=== PATIENT | female | born 2000 | race Hispanic/Latino ===

== ENCOUNTER 2022-12-06 00:44 | Inpatient (IN) | payer MEDICAID, OTHER ==
[2022-12-06] MEDS ORDERED: Carboprost 250 MCG/ML AMP IM PRN (01:33)
[2022-12-06] MEDS ORDERED: Tranexamic Acid 1,000 MG/10 ML VIAL IVP PRN (01:33)
[2022-12-06] MEDS ORDERED: Misoprostol 200 MCG TAB PR PRN (01:33)
[2022-12-06] MEDS ORDERED: Diphenoxylate HCl/Atropine Tablet PO PRN (01:33)
[2022-12-06] MEDS ORDERED: Ondansetron PF 4 MG/2 ML Vial IVP PRN ×3 (01:33→06:29)
[2022-12-06] MEDS ORDERED: Promethazine HCl 25 MG/ML VIAL IM PRN ×3 (01:33→06:29)
[2022-12-06] MEDS ORDERED: Methylergonovine 0.2 MG/ML VIAL IM PRN (01:33)
[2022-12-06] MEDS ORDERED: hydrALAZINE 20 MG/ML VIAL SLOW IVP PRN ×2 (01:33→06:29)
[2022-12-06] MEDS ORDERED: Lidocaine 1% (PF) 30 ML VIAL SC PRN (01:33)
[2022-12-06] MEDS ORDERED: Docusate 100 MG CAP PO PRN (01:33)
[2022-12-06] MEDS ORDERED: fentaNYL 50 mcg/mL 1 mL Vial SLOW IVP PRN (01:33)
[2022-12-06] MEDS ORDERED: Acetaminophen 500 MG TAB PO PRN (01:33)
[2022-12-06 01:41] VITALS: BMI 32.2
[2022-12-06] MEDS ORDERED: Lactated Ringer's 1,000 ML IV SCH (01:45)
[2022-12-06] MEDS ORDERED: Oxytocin 30 units/NS 500 ML 500 ML IV SCH (01:45)
[2022-12-06] MEDS ORDERED: Penicillin G Potassium 5 MILL.UNITS in Sodium Chloride 0.9% 100 ML IVPB SCH (01:45)
[2022-12-06] MEDS ORDERED: fentaNYL/Ropivacaine Epidural 100 ML ONE (02:17)
[2022-12-06] MEDS ORDERED: Ampicillin 2 GM VIAL ONE (02:36)
[2022-12-06 02:54] LABS: Hematocrit 33.3 % (34.9-44.5); Hemoglobin 11.6 g/dL (12.0-15.5); Mean Corpuscular HGB CONC 34.8 g/dL (32.0-36.0); Mean Corpuscular Hemoglobin 30.4 pg (27.0-33.0); Mean Corpuscular Volume 87.2 fl (81.6-98.3); Mean Platelet Volume 10.7 fl (7.4-10.4); Platelet Count 189 10x3/uL (150-450); RBC Distribution Width 13.4 % (11.5-14.5); Red Blood Cell (RBC) Count 3.82 10x6/uL (3.90-5.03); White Blood Cell (WBC) Count 8.9 10x3/uL (3.5-10.5)
[2022-12-06] MEDS ORDERED: Ampicillin 2 GM in Sodium Chloride 0.9% 100 ML IVPB SCH (03:00)
[2022-12-06 03:30] LABS: Syphilis Antibody Nonreactive (Nonreactive); Syphilis Antibody Index 0.03 S/CO (<1.00 Non-Reactive)
[2022-12-06 03:32] LABS: HBSAg Index 0.15 S/CO (0-0.99); Hep B Surf Ag - L&D Non-Reactive S/CO (NonReactive)
[2022-12-06] MEDS ORDERED: ePHEDrine Sulfate 50 MG/10 ML VIAL SLOW IVP PRN (03:35)
[2022-12-06] MEDS ORDERED: Lactated Ringer's 500 ML IV PRN (03:35)
[2022-12-06] MEDS ORDERED: diphenhydrAMINE 50 MG/ML VIAL IVP PRN (03:35)
[2022-12-06] MEDS ORDERED: Acetaminophen 325 MG TAB PO PRN (03:35)
[2022-12-06] MEDS ORDERED: Moisturizing Cream (Eucerin) 113 GM JAR TOP PRN (03:35)
[2022-12-06] MEDS ORDERED: Naloxone HCl 0.4 mg/ml Vial IVP PRN ×2 (03:35)
[2022-12-06] MEDS ORDERED: fentaNYL 2 mcg/Ropivacaine 0.2% Epidural 100 ML CADD EPIDURAL SCH (03:45)
[2022-12-06] MEDS ORDERED: Communication Order-Pharmacy FS SCH (03:45)
[2022-12-06] MEDS ORDERED: Penicillin G 2.5 MILL.units 2.5 MILL.UNITS in Premix 1 BAG IVPB SCH (05:00)
[2022-12-06] MEDS ORDERED: Milk Of Magnesia 30 ML UDCUP PO PRN (06:29)
[2022-12-06] MEDS ORDERED: Lanolin Ointment 7 GM TUBE TOP PRN (06:29)
[2022-12-06] MEDS ORDERED: diphenhydrAMINE 25 MG CAP PO PRN (06:29)
[2022-12-06] MEDS ORDERED: HYDROcodone/Acetaminophen 5/325 mg Tablet PO PRN (06:29)
[2022-12-06] MEDS ORDERED: Bisacodyl 10 MG SUPP PR PRN (06:29)
[2022-12-06] MEDS ORDERED: Boostrix 0.5 ML (Tdap) VIAL (>/=7 yrs of age) IM ONE (06:29)
[2022-12-06] MEDS: Ibuprofen 800 MG TAB PO SCH ×3 (06:30→21:30)
[2022-12-06] MEDS: Ferrous Sulfate 325 MG TAB PO SCH ×2 (15:48→15:55)
[2022-12-06] MEDS: Prenatal Vitamin 1 TAB PO SCH (15:48)
[2022-12-06] MEDS: Docusate 100 MG CAP PO SCH ×2 (15:48→21:30)
[2022-12-06] MEDS ORDERED: Bupivacaine 0.25% HCL 30 ML VIAL ONE (19:03)
[2022-12-07] MEDS: Ibuprofen 800 MG TAB PO SCH ×3 (05:31→21:33)
[2022-12-07] MEDS: Ferrous Sulfate 325 MG TAB PO SCH ×2 (07:22→07:23)
[2022-12-07] MEDS: Prenatal Vitamin 1 TAB PO SCH (09:02)
[2022-12-07] MEDS: Docusate 100 MG CAP PO SCH ×2 (09:02→21:33)
[2022-12-08] MEDS: Ibuprofen 800 MG TAB PO SCH (06:14)
[2022-12-08 09:23] VITALS: BP 109/65; TEMP 98.1
[2022-12-08] MEDS: Ferrous Sulfate 325 MG TAB PO SCH (09:24)
[2022-12-08] MEDS: Docusate 100 MG CAP PO SCH (09:24)
[2022-12-08] MEDS: Prenatal Vitamin 1 TAB PO SCH (09:24)
== END 2022-12-08 13:15 | disposition home or self-care (01) | DRG 807 ==
LOC: CSHLD/OP 00:44 → CSHLD 02:03 → CSHPP 14:55
PROVIDERS: ADMIT Family Medicine; ATTEND Family Medicine
PROC: 10E0XZZ Delivery of Products of Conception, External Approach (ICD-10-PCS; principal; 2022-12-06)
DX: O99.824 Streptococcus B carrier state complicating childbirth (principal); Z37.0 Single live birth; Z3A.37 37 weeks gestation of pregnancy
CPT/HCPCS: 51702; 85027; 86780; 86850; 86900; 86901; 87340; 99285; J0290; J2540; J2590; J3490; J7120; S0020